=== PATIENT | female | born 1940 | race Caucasian/White ===

== ENCOUNTER 2019-11-06 13:21 | Emergency (ER) | payer BC ==
[~2019-11-06] VITALS: Ht 162.6 cm; Wt 65.0 kg
[2019-11-06] MEDS ORDERED: ACETAMINOPHEN WITH CODEINE 300/30MG TABLET PO ONE (15:30)
[2019-11-06 17:07] VITALS: BP 150/89
== END 2019-11-06 17:08 | disposition home or self-care (01) ==
LOC: ER 13:21
DX: M54.5 Low back pain (principal); V49.49XA Driver injured in collision with other motor vehicles in traffic accident, initial encounter; Y93.89 Activity, other specified; Y92.488 Other paved roadways as the place of occurrence of the external cause
CPT/HCPCS: 72131; 99284

== ENCOUNTER 2022-02-27 09:20 | Inpatient (IN) | payer BC ==
[~2022-02-27] VITALS: Ht 157.5 cm; Wt 65.8 kg
[2022-02-27] VITALS: BP 112/63
[2022-02-27] MEDS ORDERED: IOHEXOL-350 100 ML BOTTLE ONE (09:51)
[2022-02-27 10:30] LABS: EOSINOPHILS % 1.5 % (0.0-5.0)
[2022-02-27 10:33] LABS: BASOPHILS % 0.9 % (0.0-2.0); HEMATOCRIT. 39.2 % (36.0-48.0); HEMOGLOBIN. 12.7 g/dL (12.0-16.0); LYMPHOCYTES % 21.1 % (20.0-50.0); MEAN CORPUSCULAR HEMOGLOBIN 25.9 pg (28.0-32.0); MEAN CORPUSCULAR VOLUME 79.6 fL (81.0-99.0); MEAN PLATELET VOLUME 9.1 fl (7.4-10.4); MONOCYTES % 8.6 % (2.0-8.0); NEUTROPHILS % 67.9 % (40.0-76.0); PLATELET 176 x1000/uL (130-400); RED BLOOD CELL COUNT 4.92 mill/uL (4.2-5.4); RED CELL DISTRIBUTION WIDTH 14.3 % (11.6-14.6)
[2022-02-27 11:17] LABS: CLARITY URINE CLEAR (CLEAR); COLOR URINE YELLOW (YELLOW); KETONES URINE NEGATIVE (NEGATIVE); LEUKOCYTE ESTERASE URINE NEGATIVE (NEGATIVE); NITRITE URINE NEGATIVE (NEGATIVE); OCCULT BLOOD URINE NEGATIVE (NEGATIVE); PROTEIN URINE NEGATIVE (NEGATIVE); SPECIFIC GRAVITY URINE 1.043 (1.005-1.030); UROBILINOGEN URINE 0.2 E.U./dL (0.2-1.0)
[2022-02-27 11:38] LABS: CHLORIDE 108 mEq/L (98-107)
[2022-02-27 12:10] LABS: ETHANOL BLOOD < 10 mg/dL
[2022-02-27 12:14] LABS: *AMPHETAMINES SCREEN URINE NEGATIVE (NEGATIVE); *BARBITURATES SCREEN URINE NEGATIVE (NEGATIVE); *BENZODIAZEPINES SCREEN URINE NEGATIVE (NEGATIVE); *COCAINE SCREEN URINE NEGATIVE (NEGATIVE); CANNABINOID URINE SCREEN NEGATIVE (NEGATIVE); METHADONE URINE SCREEN NEGATIVE (NEGATIVE); OPIATES URINE SCREEN PRESUMTIVE POSITIVE (NEGATIVE); PHENCYCLIDINE URINE SCREEN NEGATIVE (NEGATIVE)
[2022-02-27] MEDS ORDERED: ASPIRIN 325MG EC TABLET PO ONE (13:15)
[2022-02-27] MEDS ORDERED: CLONIDINE 0.1MG TABLET PO PRN (14:45)
[2022-02-27] MEDS ORDERED: MAGNESIUM/ALUMINUM HYDROXIDE/SIMETHICONE 30ML UDC PO PRN (14:45)
[2022-02-27] MEDS ORDERED: ACETAMINOPHEN 325MG TABLET PO PRN (14:45)
[2022-02-27] MEDS ORDERED: IPRATROPIUM/ALBUTEROL 0.5-3(2.5)MG/3ML NEB NEB PRN (14:45)
[2022-02-27] MEDS ORDERED: DOCUSATE SODIUM 100MG CAPSULE PO PRN (14:45)
[2022-02-27] MEDS ORDERED: GUAIFENESIN 200MG/10ML SUGAR FREE UDC PO PRN (14:45)
[2022-02-27] MEDS ORDERED: NITROGLYCERIN 0.4MG TABLET SL SL PRN (14:45)
[2022-02-27] MEDS ORDERED: NA PHOS,M-B/NA PHOS,DI-BA ENEMA 118ML PR PRN (14:45)
[2022-02-27] MEDS ORDERED: ONDANSETRON HCL 4MG/2ML INJ IV PRN (14:45)
[2022-02-27] MEDS ORDERED: ENOXAPARIN 40MG/0.4ML SYR SUBCUT SCH (14:45)
[2022-02-27] MEDS: ENOXAPARIN 30MG/0.3ML SYR SUBCUT SCH (15:00)
[2022-02-27 15:34] LABS: T4 FREE 1.07 ng/dL (0.76-1.46)
[2022-02-27 15:51] LABS: VITAMIN B12 SERUM 303 pg/mL (211-911)
[2022-02-27] MEDS ORDERED: OMEP20TA15 MT (18:19)
[2022-02-27] MEDS ORDERED: LEVO75TA7 MT (18:21)
[2022-02-27 20:00] VITALS: BP 137/80
[2022-02-27] MEDS ORDERED: ZOLPIDEM TARTRATE 5MG TABLET PO PRN (21:00)
[2022-02-27] MEDS: FAMOTIDINE 20MG TABLET PO SCH (21:04)
[2022-02-27 22:00] VITALS: BP 115/70
[2022-02-28] VITALS (12 sets, daily range): BP systolic 111–145; BP diastolic 27–73
[2022-02-28 01:46] LABS: CREATINE KINASE 104 IU/L (26-192); CREATINE KINASE MB FRACTION 3.3 ng/mL (0.5-3.6)
[2022-02-28] MEDS: LEVOTHYROXINE SODIUM 75MCG TABLET PO SCH (06:00)
[2022-02-28 08:14] LABS: BASOPHILS % 1.1 % (0.0-2.0); EOSINOPHILS % 1.9 % (0.0-5.0); HEMATOCRIT. 40.1 % (36.0-48.0); HEMOGLOBIN. 12.9 g/dL (12.0-16.0); LYMPHOCYTES % 23.1 % (20.0-50.0); MEAN CORPUSCULAR HEMOGLOBIN 25.7 pg (28.0-32.0); MONOCYTES % 9.2 % (2.0-8.0); NEUTROPHILS % 64.7 % (40.0-76.0); PLATELET 187 x1000/uL (130-400); RED BLOOD CELL COUNT 5.02 mill/uL (4.2-5.4); RED CELL DISTRIBUTION WIDTH 14.4 % (11.6-14.6)
[2022-02-28] MEDS ORDERED: ASPIRIN 325MG EC TABLET PO SCH (09:00)
[2022-02-28] MEDS: CLOPIDOGREL 75MG TABLET PO SCH (09:27)
[2022-02-28 09:48] LABS: CREATINE KINASE MB FRACTION 2.3 ng/mL (0.5-3.6)
[2022-02-28 10:30] LABS: CHLORIDE 107 mEq/L (98-107)
[2022-02-28 10:45] LABS: PHOSPHORUS 3.2 mg/dL (2.5-4.9)
[2022-02-28] MEDS: ACETAMINOPHEN 325MG TABLET PO PRN ×2 (11:28→19:55)
[2022-02-28] MEDS: CYANOCOBALAMIN 1000MCG/ML VIAL IM SCH (15:23)
[2022-02-28] MEDS: ENOXAPARIN 30MG/0.3ML SYR SUBCUT SCH (15:23)
[2022-02-28] MEDS: FAMOTIDINE 20MG TABLET PO SCH (19:51)
[2022-02-28] MEDS: ASPIRIN 81MG TABLET PO SCH (19:51)
[2022-02-28] MEDS: ATORVASTATIN CALCIUM 40MG TABLET PO SCH (21:32)
[2022-03-01] VITALS (10 sets, daily range): BP systolic 118–134; BP diastolic 52–74
[2022-03-01] MEDS: LEVOTHYROXINE SODIUM 75MCG TABLET PO SCH (06:50)
[2022-03-01] MEDS: CLOPIDOGREL 75MG TABLET PO SCH (09:00)
[2022-03-01] MEDS: ASPIRIN 81MG TABLET PO SCH (09:00)
[2022-03-01] MEDS: CYANOCOBALAMIN 1000MCG/ML VIAL IM SCH (09:00)
[2022-03-01] MEDS: ENOXAPARIN 30MG/0.3ML SYR SUBCUT SCH (15:00)
[2022-03-01] MEDS: ATORVASTATIN CALCIUM 40MG TABLET PO SCH (21:39)
[2022-03-01] MEDS: FAMOTIDINE 20MG TABLET PO SCH (21:39)
[2022-03-02] VITALS (8 sets, daily range): BP systolic 86–150; BP diastolic 43–98
[2022-03-02] MEDS: LEVOTHYROXINE SODIUM 75MCG TABLET PO SCH (06:35)
[2022-03-02] MEDS ORDERED: DEXTROSE 5% WATER 1,000 ML IV ONE (09:15)
[2022-03-02] MEDS: ASPIRIN 81MG TABLET PO SCH (11:04)
[2022-03-02] MEDS: CYANOCOBALAMIN 1000MCG/ML VIAL IM SCH (11:05)
[2022-03-02] MEDS: CLOPIDOGREL 75MG TABLET PO SCH (11:05)
[2022-03-02] MEDS: ENOXAPARIN 30MG/0.3ML SYR SUBCUT SCH (15:00)
[2022-03-02 16:19] LABS: CLARITY URINE HAZY (CLEAR); COLOR URINE YELLOW (YELLOW); PROTEIN URINE 2+ (NEGATIVE)
[2022-03-02 16:20] LABS: KETONES URINE TRACE (NEGATIVE); LEUKOCYTE ESTERASE URINE 1+ (NEGATIVE); NITRITE URINE POSITIVE (NEGATIVE); OCCULT BLOOD URINE 2+ (NEGATIVE); UROBILINOGEN URINE 0.2 E.U./dL (0.2-1.0)
[2022-03-02] MEDS ORDERED: CEFTRIAXONE 1 G PREMIX 50 ML IV SCH (20:30)
[2022-03-02] MEDS: FAMOTIDINE 20MG TABLET PO SCH (22:28)
[2022-03-02] MEDS: ATORVASTATIN CALCIUM 40MG TABLET PO SCH (22:28)
[2022-03-02] MEDS: CEFTRIAXONE 1,000 MG in DEXTROSE 5% WATER 50 ML IV SCH (22:29)
[2022-03-03] VITALS: BP 121/62
[2022-03-03 04:00] VITALS: BP 146/89
[2022-03-03] MEDS: LEVOTHYROXINE SODIUM 75MCG TABLET PO SCH (06:01)
[2022-03-03 08:00] VITALS: BP 121/57
[2022-03-03] MEDS: ASPIRIN 81MG TABLET PO SCH (09:08)
[2022-03-03] MEDS: CLOPIDOGREL 75MG TABLET PO SCH (09:08)
[2022-03-03] MEDS: CYANOCOBALAMIN 1000MCG/ML VIAL IM SCH (09:08)
[2022-03-03 12:00] VITALS: BP 151/75
[2022-03-03] MEDS: ENOXAPARIN 30MG/0.3ML SYR SUBCUT SCH (15:42)
[2022-03-03 16:16] VITALS: BP 104/57
[2022-03-03 20:00] VITALS: BP 110/40
[2022-03-03] MEDS: FAMOTIDINE 20MG TABLET PO SCH (21:28)
[2022-03-03] MEDS: ATORVASTATIN CALCIUM 40MG TABLET PO SCH (21:28)
[2022-03-03] MEDS: CEFTRIAXONE 1,000 MG in DEXTROSE 5% WATER 50 ML IV SCH (21:28)
[2022-03-04] VITALS (8 sets, daily range): BP systolic 90–129; BP diastolic 36–93
[2022-03-04] MEDS: LEVOTHYROXINE SODIUM 75MCG TABLET PO SCH (06:50)
[2022-03-04] MEDS: CLOPIDOGREL 75MG TABLET PO SCH (09:00)
[2022-03-04] MEDS: ASPIRIN 81MG TABLET PO SCH (09:00)
[2022-03-04] MEDS: CYANOCOBALAMIN 1000MCG/ML VIAL IM SCH (09:00)
[2022-03-04] MEDS ORDERED: TETRACAINE/BENZOCAINE/BUTAMBEN 20 GM SPRAY MM ONE (11:34)
[2022-03-04] MEDS ORDERED: LIDOCAINE HCL 2% JELLY 5ML ONE (11:36)
[2022-03-04] MEDS ORDERED: FENTANYL CITRATE/PF 50MCG/ML 2ML VIAL ONE (12:02)
[2022-03-04] MEDS ORDERED: MIDAZOLAM HCL 2 MG/2 ML VIAL ONE (12:02)
[2022-03-04] MEDS: ENOXAPARIN 30MG/0.3ML SYR SUBCUT SCH (15:00)
[2022-03-04] MEDS ORDERED: THROAT LOZENGES-BENZOCAINE/MENTH/CETYLPYRD CL LOZENGES MM PRN (16:00)
[2022-03-04] MEDS: ATORVASTATIN CALCIUM 40MG TABLET PO SCH (21:20)
[2022-03-04] MEDS: CEFTRIAXONE 1,000 MG in DEXTROSE 5% WATER 50 ML IV SCH (21:20)
[2022-03-04] MEDS: FAMOTIDINE 20MG TABLET PO SCH (21:20)
[2022-03-05] VITALS (22 sets, daily range): BP systolic 83–163; BP diastolic 36–117
[2022-03-05] MEDS: LEVOTHYROXINE SODIUM 75MCG TABLET PO SCH (06:03)
[2022-03-05] MEDS: CYANOCOBALAMIN 1000MCG/ML VIAL IM SCH (09:21)
[2022-03-05] MEDS: ASPIRIN 81MG TABLET PO SCH (09:21)
[2022-03-05] MEDS: CLOPIDOGREL 75MG TABLET PO SCH (09:21)
[2022-03-05] MEDS ORDERED: IOHEXOL-350 100 ML BOTTLE ONE (14:30)
[2022-03-05] MEDS: ENOXAPARIN 30MG/0.3ML SYR SUBCUT SCH (16:06)
[2022-03-05 16:16] LABS: BASOPHILS % 0.8 % (0.0-2.0); EOSINOPHILS % 1.4 % (0.0-5.0); HEMATOCRIT. 40.6 % (36.0-48.0); HEMOGLOBIN. 13.1 g/dL (12.0-16.0); LYMPHOCYTES % 18.8 % (20.0-50.0); MEAN CORPUSCULAR HEMOGLOBIN 25.6 pg (28.0-32.0); MEAN CORPUSCULAR VOLUME 79.8 fL (81.0-99.0); MEAN PLATELET VOLUME 9.4 fl (7.4-10.4); MONOCYTES % 8.2 % (2.0-8.0); NEUTROPHILS % 70.8 % (40.0-76.0); PLATELET 195 x1000/uL (130-400); RED BLOOD CELL COUNT 5.09 mill/uL (4.2-5.4); RED CELL DISTRIBUTION WIDTH 13.8 % (11.6-14.6)
[2022-03-05 16:20] LABS: PROTHROMBIN TIME 10.9 sec (9.6-11.0)
[2022-03-05 16:48] LABS: CHLORIDE 103 mEq/L (98-107)
[2022-03-05] MEDS ORDERED: TRAZODONE HCL 50MG TABLET PO SCH (21:00)
[2022-03-05] MEDS: ATORVASTATIN CALCIUM 40MG TABLET PO SCH (21:00)
[2022-03-05] MEDS: FAMOTIDINE 20MG TABLET PO SCH (21:00)
[2022-03-05] MEDS: CEFTRIAXONE 1,000 MG in DEXTROSE 5% WATER 50 ML IV SCH (21:48)
[2022-03-06] VITALS: BP 121/73
[2022-03-06 04:00] VITALS: BP 138/69
[2022-03-06] MEDS: LEVOTHYROXINE SODIUM 75MCG TABLET PO SCH (06:50)
[2022-03-06 07:25] LABS: CHLORIDE 104 mEq/L (98-107)
[2022-03-06 07:31] LABS: BASOPHILS % 0.9 % (0.0-2.0); EOSINOPHILS % 2.8 % (0.0-5.0); HEMATOCRIT. 40.3 % (36.0-48.0); HEMOGLOBIN. 13.3 g/dL (12.0-16.0); LYMPHOCYTES % 23.7 % (20.0-50.0); MEAN CORPUSCULAR HEMOGLOBIN 26.2 pg (28.0-32.0); MEAN CORPUSCULAR VOLUME 79.3 fL (81.0-99.0); MEAN PLATELET VOLUME 9.3 fl (7.4-10.4); MONOCYTES % 11.3 % (2.0-8.0); NEUTROPHILS % 61.3 % (40.0-76.0); PLATELET 192 x1000/uL (130-400); RED BLOOD CELL COUNT 5.08 mill/uL (4.2-5.4); RED CELL DISTRIBUTION WIDTH 13.7 % (11.6-14.6)
[2022-03-06 08:00] VITALS: BP 144/62
[2022-03-06] MEDS: CYANOCOBALAMIN 1000MCG/ML VIAL IM SCH (09:55)
[2022-03-06] MEDS: CLOPIDOGREL 75MG TABLET PO SCH (09:56)
[2022-03-06] MEDS: ASPIRIN 81MG TABLET PO SCH (09:56)
[2022-03-06 12:00] VITALS: BP 122/85
[2022-03-06 15:16] VITALS: BP 120/65
== END 2022-03-06 14:45 | DRG 64 ==
LOC: ER 09:20 → EDBEDREQSVC 10:34 → EDBEDREQ 10:34 → EDBEDREQTM 10:34 → 3WST 13:12 → EDBEDREQTM 13:13 → EDBEDREQ 13:13 → ENRESERV 15:56
PROVIDERS: ADMIT Internal Medicine; ATTEND Internal Medicine
DX: I63.512 Cerebral infarction due to unspecified occlusion or stenosis of left middle cerebral artery (principal); G92.8 Other toxic encephalopathy; E44.1 Mild protein-calorie malnutrition; R47.01 Aphasia; I10 Essential (primary) hypertension; E78.5 Hyperlipidemia, unspecified; G89.4 Chronic pain syndrome; R29.708 NIHSS score 8; E78.00 Pure hypercholesterolemia, unspecified; E03.9 Hypothyroidism, unspecified; E11.9 Type 2 diabetes mellitus without complications; R47.1 Dysarthria and anarthria; E53.8 Deficiency of other specified B group vitamins; R53.81 Other malaise; G51.0 Bell's palsy; Z20.822 Contact with and (suspected) exposure to COVID-19; Z68.26 Body mass index [BMI] 26.0-26.9, adult; Z79.899 Other long term (current) drug therapy; Z98.1 Arthrodesis status; Z82.49 Family history of ischemic heart disease and other diseases of the circulatory system
CPT/HCPCS: 36415; 70496; 70498; 70551; 71045; 80048; 80053; 80061; 80305; 80320; 81003; 82550; 82553; 82607; 82746; 82962; 83036; 83540; 83550; 83735; 84100; 84439; 84443; 84484; 85025; 87426; 92610; 93005; 93306; 93312; 93970; 97116; 97162; 97166; 99291; C9803; J0696; J1650; J2250; J3010; J3420; J7060; Q9967; G0480